=== PATIENT | male | born 1995 | race Caucasian/White ===

== ENCOUNTER 2018-02-07 09:05 | Emergency (ER) | payer BC ==
[~2018-02-07] VITALS: Ht 175.3 cm; Wt 86.4 kg
[2018-02-07 09:10] VITALS: BP 133/69; TEMP 96.9
[2018-02-07 10:39] VITALS: PULSE 70
== END 2018-02-07 10:40 | disposition home or self-care (01) ==
LOC: COL.ER 09:05
DX: F41.1 Generalized anxiety disorder (principal); F12.90 Cannabis use, unspecified, uncomplicated; G47.00 Insomnia, unspecified

== ENCOUNTER 2018-03-19 15:01 | Emergency (ER) | payer BC ==
[~2018-03-19] VITALS: Ht 175.3 cm; Wt 90.9 kg
[2018-03-19 15:04] VITALS: BP 127/65; TEMP 98.1
[2018-03-19] MEDS ORDERED: BACTRIM DS 8001 TAB PO (17:37)
[2018-03-19 17:39] VITALS: PULSE 14
== END 2018-03-19 17:42 | disposition home or self-care (01) ==
LOC: COL.ER 15:01
DX: L73.9 Follicular disorder, unspecified (principal)

== ENCOUNTER 2018-03-21 20:52 | Emergency (ER) | payer BC ==
[~2018-03-21] VITALS: Ht 175.3 cm; Wt 88.6 kg
[~2018-03-21 20:52] MED LIST: BACTRIM DS 8001 TAB PO
[2018-03-21 20:54] VITALS: BP 139/64; TEMP 97.8
[2018-03-21 22:26] LABS: COLLECTION METHOD CLEAN CATCH
[2018-03-21 22:32] LABS: MUCOUS Present /lpf; PH 6 (5-8); SQUAMOUS EPITHELIAL None Seen /hpf; URINE APPEARANCE Clear; URINE BACTERIA None Seen /hpf; URINE BILIRUBIN Negative (NEGATIVE); URINE BLOOD Negative (NEGATIVE); URINE COLOR Yellow; URINE GLUCOSE Negative (NEGATIVE); URINE KETONE Negative (NEGATIVE); URINE LEUKOCYTE ESTERASE Negative (NEGATIVE); URINE NITRATE Negative (NEGATIVE); URINE PROTEIN(semi-quant) Negative (NEGATIVE); URINE RBC 0-2 /hpf; URINE WBC 0-2 /hpf
[2018-03-21] MEDS ORDERED: VALTREX1 GM PO (22:57)
[2018-03-21] MEDS ORDERED: CEPHALEXIN500 M1 PO (23:03)
[2018-03-21 23:24] VITALS: PULSE 60
== END 2018-03-21 23:25 | disposition home or self-care (01) ==
LOC: COL.ER 20:52
PROVIDERS: Physician Assistant
DX: N50.9 Disorder of male genital organs, unspecified (principal); Z90.89 Acquired absence of other organs